=== PATIENT | female | born 1980 | race African-American/Black ===

== ENCOUNTER 2017-09-18 22:16 | Emergency (ER) | payer MEDICAID ==
[~2017-09-18] VITALS: Ht 157.5 cm; Wt 62.4 kg
[2017-09-19 01:32] LABS: CLARITY URINE TURBID (CLEAR); COLOR URINE DARK YELLOW (YELLOW); KETONES URINE TRACE (NEGATIVE); LEUKOCYTE ESTERASE URINE 3+ (NEGATIVE); NITRITE URINE NEGATIVE (NEGATIVE); OCCULT BLOOD URINE 3+ (NEGATIVE); PH URINE 5.5 (4.5-8.0); PROTEIN URINE 2+ (NEGATIVE); SPECIFIC GRAVITY URINE 1.023 (1.005-1.030)
[2017-09-19] MEDS ORDERED: ACETAMINOPHEN 500MG TABLET PO ONE (07:00)
[2017-09-19] MEDS ORDERED: CEFTRIAXONE SODIUM 1 G/VIAL IM ONE (07:00)
[2017-09-19] MEDS ORDERED: LIDOCAINE HCL 1% 20ML VIAL (Pyxis) INJ INFIL ONE (07:00)
[2017-09-19] MEDS ORDERED: LIDOCAINE HCL/PF 1% 10 MG/ML 5ML VIAL IJ ONE (07:15)
[2017-09-19 07:54] VITALS: BP 105/72
== END 2017-09-19 08:26 | disposition home or self-care (01) ==
LOC: ER 22:16
DX: N39.0 Urinary tract infection, site not specified (principal); F17.200 Nicotine dependence, unspecified, uncomplicated; Z88.6 Allergy status to analgesic agent; Z88.5 Allergy status to narcotic agent
CPT/HCPCS: 81003; 87086; 96372; 99284; J0696; J3490; Z7610